=== PATIENT | male | born 1935 | race Caucasian/White ===

== ENCOUNTER 2018-11-30 10:24 | Outpatient (CLI) | payer MEDICARE ==
--- NOTE | 2018-11-30 11:54 | MRI ---
EXAM: Lumbar spine MRI without contrast. HISTORY: Lumbar radiculopathy, low back pain COMPARISON: 08/15/2008 FINDINGS: Multiplanar, multisequence MRI examination of the lumbar spine is performed. The conus medullaris region appears unremarkable. Focal type I endplate changes at L4-L5. 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 Multiple bilateral renal cysts including a bilobed cyst up to 3.8 x 5.9 cm on the right. Disc osteophytosis at T10-T11 and T11-T12 with moderate to severe canal stenosis. T12-L1 disc level: Mild lateral recess stenosis.. L1-L2 disc level: Moderate bilateral recess stenosis. L2-L3 disc level: Severe canal, lateral recess, and foraminal stenosis with associated annular fissur e. L3-L4 disc level: Very severe central canal, lateral recess, and foraminal stenosis. L4-L5 disc level: Very severe central canal, lateral recess, or foraminal stenosis. L5-S1 disc level: Grade 1 anterolisthesis with severe central canal, lateral recess, or foraminal shashank nosis. IMPRESSION: Extensive multilevel canal, lateral recess, and foraminal stenosis of the very severe. Type I endplate changes at L4-L5. Other findings as above.
== END 2018-11-30 10:25 | disposition home or self-care (01) ==
LOC: TBSIIMAG 10:24
PROVIDERS: ATTEND Physician Assistant Surgical
DX: M54.16 Radiculopathy, lumbar region (principal); M48.061 Spinal stenosis, lumbar region without neurogenic claudication; M43.17 Spondylolisthesis, lumbosacral region
CPT/HCPCS: 72148

== ENCOUNTER 2020-01-15 06:20 | Outpatient (CLI) | payer MEDICARE, OTHER ==
[2020-01-15 14:11] LABS: INR-International Normal Ratio 1.1; Prothrombin Time 14.1 sec (12.0-14.7)
[2020-01-15 14:39] LABS: Hemoglobin 14.3 g/dL (14.0-18.0); Mean Corpuscular HGB CONC 33.5 g/dL (32.0-36.0); Mean Corpuscular Hemoglobin 34.2 pg (27.0-31.0); Mean Platelet Volume 8.8 fL (7.4-10.4); Platelet Count 153 thou/uL (130-400); RBC Distribution Width 11.9 % (11.5-14.5); Red Blood Cell (RBC) Count 4.17 mill/uL (4.70-6.10); White Blood Cell (WBC) Count 5.5 thou/uL (4.8-10.8)
[2020-01-15 15:08] LABS: Anion Gap 12 mmol/L (10-20); BUN (Urea Nitrogen) 24 mg/dL (8.4-25.7); Calc. Creatinine Clearance 0 mL/min (70-130); Calcium 9.6 mg/dL (7.8-10.44); Carbon Dioxide 27 mmol/L (23-31); Chloride 106 mmol/L (98-107); Estimated GFR-MDRD 58; Glucose 91 mg/dL (83-110); Potassium 4.8 mmol/L (3.5-5.1); Sodium 140 mmol/L (136-145)
[2020-01-16 11:34] LABS: SARS-CoV-2 MS2 Positive; SARS-CoV-2 N Gene Negative; SARS-CoV-2 S Gene Negative; SARS-CoV-2 by NAA Not Detected (NotDetected); SARS-CoV-2 orf1ab Negative
--- NOTE | 2020-01-16 14:55 | EKG ---
Test Reason : Blood Pressure : / mmHG Vent. Rate : 060 BPM Atrial Rate : 060 BPM P-R Int : 284 ms QRS Dur : 128 ms QT Int : 412 ms P-R-T Axes : 075 -55 -53 degrees QTc Int : 412 ms Sinus rhythm with 1st degree A-V block Left axis deviation Left ventricular hypertrophy with QRS widening Nonspecific T wave abnormality Abnormal ECG No previous ECGs available Confirmed by ODESSA MACKEY (2) on 01/16/2020 2:54:33 PM Referred By: REID Confirmed By:ODESSA MACKEY
== END 2020-01-15 06:21 | disposition home or self-care (01) ==
LOC: LABBT 06:20
PROVIDERS: ATTEND Surgery
DX: Z01.818 Encounter for other preprocedural examination (principal); M43.16 Spondylolisthesis, lumbar region; M54.16 Radiculopathy, lumbar region; M71.38 Other bursal cyst, other site; Z20.828 Contact with and (suspected) exposure to other viral communicable diseases
CPT/HCPCS: 80048; 85027; 85610; 85730; 93005; U0003; 87635; 93010

== ENCOUNTER 2020-01-18 09:19 | Day surgery (SDC) | payer MEDICARE ==
[2020-01-18] MEDS ORDERED: Thrombin 5000 UNITS/5 ML VIAL ONE ×3 (10:19→14:34)
[2020-01-18] MEDS ORDERED: Metoclopramide HCl 10 MG/2 ML VIAL ONE (11:01)
[2020-01-18] MEDS ORDERED: Ondansetron PF 4 MG/2 ML Vial ONE (11:01)
[2020-01-18] MEDS ORDERED: PHENYLEPHRINE-NS 100 MCG/ML 10 ML SYRINGE ONE (11:01)
[2020-01-18] MEDS ORDERED: Lidocaine 1% PF 5 ML VIAL ONE (11:01)
[2020-01-18] MEDS ORDERED: EPHEDRINE 25 MG/5 ML SYRINGE ONE ×2 (11:01)
[2020-01-18] MEDS ORDERED: PROPOFOL 200 MG/20 ML VIAL ONE (11:01)
[2020-01-18] MEDS ORDERED: Rocuronium Bromide 10 MG/ML (10ML VIAL) ONE (11:01)
[2020-01-18] MEDS ORDERED: Dexamethasone 20 MG/5 ML VIAL ONE (11:01)
[2020-01-18] MEDS ORDERED: Glycopyrrolate 0.2 MG/ML 5 ML SYRINGE ONE (11:01)
[2020-01-18] MEDS ORDERED: Fentanyl 100 MCG/2 ML VIAL ONE ×4 (12:17→17:53)
[2020-01-18] MEDS ORDERED: diphenhydrAMINE 25 MG CAP PO PRN (12:57)
[2020-01-18] MEDS ORDERED: tiZANidine HCl 4 MG TAB PO PRN (12:57)
[2020-01-18] MEDS ORDERED: Acetaminophen 325 MG TAB PO PRN (12:57)
[2020-01-18] MEDS ORDERED: Acetaminophen/Codeine 30-300mg Tablet PO PRN (12:57)
[2020-01-18] MEDS ORDERED: traMADol HCl 50 MG TAB PO PRN (12:57)
[2020-01-18] MEDS ORDERED: Morphine 2 MG/ML VIAL SLOW IVP PRN (12:57)
[2020-01-18] MEDS ORDERED: Promethazine HCl 25 MG/ML VIAL IM PRN (12:57)
[2020-01-18] MEDS ORDERED: Bisacodyl 10 MG SUPP PR PRN (12:57)
[2020-01-18] MEDS ORDERED: Phenylephrine 10 MG/ML VIAL ONE (13:28)
[2020-01-18] MEDS ORDERED: Ondansetron HCl/PF 4 MG/2 ML Vial IVP PRN (14:45)
[2020-01-18] MEDS ORDERED: Promethazine HCl 25 MG/ML VIAL SLOW IVP PRN (14:45)
[2020-01-18] MEDS ORDERED: SUGAMMADEX SODIUM 200 MG/2 ML VIAL ONE (14:46)
[2020-01-18] MEDS: CEFAZOLIN 2 GM in Premix Bag 1 BAG IVPB SCH (18:12)
[2020-01-18] MEDS: Sodium Chloride 0.9% 1,000 ML IV SCH (19:41)
[2020-01-18] MEDS: Flecainide 50 MG TAB PO SCH (20:35)
[2020-01-18] MEDS: Folic Acid 1 MG TAB PO SCH (20:36)
[2020-01-18] MEDS: Tamsulosin HCl 0.4 MG CAP PO SCH (20:36)
[2020-01-18] MEDS: Atorvastatin Calcium 20 MG TAB PO SCH (20:36)
[2020-01-18] MEDS: Metoprolol Tartrate 25 MG TAB PO SCH (20:36)
[2020-01-18] MEDS ORDERED: Glucosamine/D3/Boswellia Serra [Osteo Bi-Flex Tablet] PO SCH (21:00)
[2020-01-18] MEDS ORDERED: DOXYCYCLINE MONOHYDRATE 50 MG PO SCH (21:00)
[2020-01-18 21:04] VITALS: BMI 31.1
[2020-01-19] MEDS: Sodium Chloride 0.9% 1,000 ML IV SCH ×2 (02:51→13:39)
[2020-01-19] MEDS: HYDROcodone/Acetaminophen 7.5/325 mg Tablet PO PRN ×3 (03:44→18:51)
[2020-01-19] MEDS: CEFAZOLIN 2 GM in Premix Bag 1 BAG IVPB SCH (03:45)
[2020-01-19 07:49] LABS: #Lymphocytes 1.2 thou/uL (1.20-3.40); #Neutrophils 7.8 thou/uL (1.40-6.50); %Basophils 0.1 % (0.0-1.0); %Eosinophils 0.1 % (0.0-10.0); %Monocytes 9.8 % (0.0-10.0); Hemoglobin 11.3 g/dL (14.0-18.0); Mean Corpuscular HGB CONC 33.5 g/dL (32.0-36.0); Mean Platelet Volume 8.4 fL (7.4-10.4); Platelet Count 124 thou/uL (130-400); RBC Distribution Width 11.8 % (11.5-14.5); Red Blood Cell (RBC) Count 3.33 mill/uL (4.70-6.10)
[2020-01-19] MEDS: Losartan 25 MG TAB PO SCH (08:34)
[2020-01-19] MEDS: Multivit, Therapeutic 1 TAB PO SCH (08:42)
[2020-01-19] MEDS: Ubidecarenone 50 MG CAP PO SCH (08:42)
[2020-01-19] MEDS: Flecainide 50 MG TAB PO SCH ×2 (09:30→20:18)
--- NOTE | 2020-01-19 11:19 | PRG ---
DATE OF SERVICE: Mr. Gooden is doing well this morning. He has improvement in his leg pain, although neurogenic claudication was not his main issue, but rather fatigue and increased back and proximal leg pain, this has improved. He is having incisional pain. He has ambulated once, but has not yet eaten. He is voiding on his own. [place] I would like one more day just to make sure that he is safe on his feet and his mobilization. He needs to hold his Eliquis for 2 weeks following surgery along with his fish oil and other herbs. Job ID: [id number]
[2020-01-19] MEDS: Hydrochlorothiazide 25 MG TAB PO SCH (11:58)
[2020-01-19] MEDS: Metoprolol Tartrate 25 MG TAB PO SCH ×2 (11:58→20:21)
[2020-01-19] MEDS: Atorvastatin Calcium 20 MG TAB PO SCH (20:18)
[2020-01-19] MEDS: Folic Acid 1 MG TAB PO SCH (20:18)
[2020-01-19] MEDS: Tamsulosin HCl 0.4 MG CAP PO SCH (20:18)
[2020-01-20] MEDS: HYDROcodone/Acetaminophen 7.5/325 mg Tablet PO PRN ×3 (00:13→11:46)
[2020-01-20] MEDS: Sodium Chloride 0.9% 1,000 ML IV SCH (04:37)
[2020-01-20 07:45] VITALS: BP 127/74; TEMP 98.7
[2020-01-20] MEDS: Losartan 25 MG TAB PO SCH (08:43)
[2020-01-20] MEDS: Hydrochlorothiazide 25 MG TAB PO SCH (08:44)
[2020-01-20] MEDS: Multivit, Therapeutic 1 TAB PO SCH (08:44)
[2020-01-20] MEDS: Ubidecarenone 50 MG CAP PO SCH (08:44)
[2020-01-20] MEDS: Flecainide 50 MG TAB PO SCH (08:44)
[2020-01-20] MEDS: Metoprolol Tartrate 25 MG TAB PO SCH (08:45)
--- NOTE | 2020-01-20 10:33 | PRG ---
DATE OF SERVICE: 01/20/2020 I saw Mr. Gooden on rounds early this morning. He is 2 days out from decompression and in situ fusion. He is up yesterday walking in the hallways. Mr. Gooden is anxious to leave the hospital. He will make arrangements for that discharge to happen later this morning or in the early afternoon hours. Followup arrangements have been made with Dr. Ferraro and we went over activity restrictions. Job ID: [id number]
--- NOTE | 2020-01-21 08:16 | OP ---
DATE OF PROCEDURE: 01/18/2020 BUILDING ENGINEER: Essence Cuevas PA-C. PREPROCEDURE DIAGNOSES: 1. Multilevel lumbar stenosis with low back and leg pain. 2. Lumbar synovial cyst. 3. L5-S1 spondylolisthesis. POSTPROCEDURE DIAGNOSES: 1. Multilevel lumbar stenosis with low back and leg pain. 2. Lumbar synovial cyst. 3. L5-S1 spondylolisthesis. PROCEDURES PERFORMED: 1. L2-L3, L3-L4, and L4-L5 laminectomies, partial facetectomies, and foraminotomies. 2. Left L5-S1 synovial cyst resection. 3. Right L5-S1 hemilaminotomy and foraminotomy. 4. Posterior lateral arthrodesis initiation with in situ fusion using local bone autograft obtained from same incision of allograft, L5-S1 for spondylolisthesis. DESCRIPTION OF PROCEDURE: After informed consent was obtained from the patient, the patient was brought to the OR. Proper patient, pause, and identification were carried out. He was placed under excellent general endotracheal anesthesia and positioned prone on the OR table. All appropriate points were padded. We identified the L2 through S1 dorsal spines. A linear benoit was made. This region was sterilely cleansed, prepared, and draped. Proper patient, pause, and identification were carried out. The wound was then opened with a combination of sharp, monopolar, and blunt dissection and the L2, L3, L4, L5 and S1 dorsal spines and lamina were exposed. Localization film confirmed our area of interest. We then performed L2, L3, L4, L5 laminectomies, partial facetectomies, and foraminotomies. We then performed a left L5-S1 synovial cyst resection and right L5-S1 hemilaminotomy and foraminotomy and posterior lateral regions were then decorticated. Local bone autograft and allograft were placed over this region to initiate arthrodesis for treatment of spondylolisthesis. The wound was copiously irrigated and closed in anatomic layers. The patient then emerged from anesthesia. Meticulous hemostasis was maintained throughout. The wound was closed in anatomic layers following sprinkling of vancomycin powder. Job ID: [id number]
== END 2020-01-20 11:53 | disposition home or self-care (01) ==
LOC: SDC 09:19 → SURG A 12:57 → SDC 01-20 11:53
PROVIDERS: ATTEND Surgery
PROC: 01NB0ZZ Release Lumbar Nerve, Open Approach (ICD-10-PCS; principal; 2020-01-18)
PROC: 0SG3071 Fusion of Lumbosacral Joint with Autologous Tissue Substitute, Posterior Approach, Posterior Column, Open Approach (ICD-10-PCS; 2020-01-18)
PROC: 0QB00ZZ Excision of Lumbar Vertebra, Open Approach (ICD-10-PCS; 2020-01-18)
DX: M48.062 Spinal stenosis, lumbar region with neurogenic claudication (principal); M43.17 Spondylolisthesis, lumbosacral region; M71.38 Other bursal cyst, other site; M54.16 Radiculopathy, lumbar region; E78.5 Hyperlipidemia, unspecified; I48.91 Unspecified atrial fibrillation; N40.0 Benign prostatic hyperplasia without lower urinary tract symptoms; Z79.01 Long term (current) use of anticoagulants; Z79.899 Other long term (current) drug therapy
CPT/HCPCS: 20930; 20936; 22612; 63047; 63048 ×2; 63267; 76000; 85025; C1713; 36415; J0690; J1100; J2370; J2405; J2704; J2765; J3010; J3370

== ENCOUNTER 2020-08-12 10:53 | Outpatient (CLI) | payer MEDICARE | END 2020-08-12 10:54 | disposition home or self-care (01) | LOC: TBSIIMAG 10:53 | PROVIDERS: ATTEND Surgery | DX: M43.16 Spondylolisthesis, lumbar region (principal); M54.5 Low back pain | CPT/HCPCS: 72110 ==